=== PATIENT | female | born 1965 | race Caucasian/White ===

== ENCOUNTER → 2021-03-09 | Outpatient (CLI) | payer OTHER | LOC: HEART CORB 09:58 → EDSEX 09:58 → HEART CORB 10:00 | DX: R06.00 Dyspnea, unspecified (principal); I10 Essential (primary) hypertension; R07.2 Precordial pain; I08.3 Combined rheumatic disorders of mitral, aortic and tricuspid valves; I27.20 Pulmonary hypertension, unspecified | CPT/HCPCS: 78452; 93306; A9502; J2785 ==